=== PATIENT | male | born 1995 | race African-American/Black ===

== ENCOUNTER 2017-12-21 12:08 | Emergency (ER) | payer SELFPAY | END 2017-12-21 13:35 | disposition home or self-care (01) | LOC: ERS 12:08 | DX: K02.9 Dental caries, unspecified (principal); F31.9 Bipolar disorder, unspecified; F20.9 Schizophrenia, unspecified; F91.9 Conduct disorder, unspecified; F17.210 Nicotine dependence, cigarettes, uncomplicated | CPT/HCPCS: 99283 ==